=== PATIENT | male | born 1955 | race Caucasian/White ===

== ENCOUNTER 2020-06-18 12:00 | Outpatient (REF) | payer MEDICARE, SELFPAY ==
[2020-06-18 14:32] LABS: Alanine Aminotransferase 22 U/L (0-40); Albumin Level 4.3 g/dL (3.5-5.0); Alkaline Phosphatase 80 U/L (39-117); Anion Gap 13 (12-20); Aspartate Amino Transferase 15 U/L (5-37); Bilirubin Total 0.4 mg/dL (0.0-1.0); Blood Urea Nitrogen 21 mg/dL (9-16); Carbon Dioxide 24 mmol/L (22-29); Chloride 108 mmol/L (96-108); Cholesterol 186 mg/dL; Estimated Glomerular Filt Rate > 60; Glucose Fasting 85 mg/dL (60-99); HDL Cholesterol 41 mg/dL; LDL Cholesterol Calculated 120 mg/dl; Potassium 4.4 mmol/l (3.3-5.1); Sodium 141 mmol/L (135-145); Total Protein 6.8 g/dL (6.5-8.0); Triglycerides 127 mg/dL
== END 2020-06-18 12:01 | disposition home or self-care (01) ==
LOC: HO.HMGCLDS 12:00
PROVIDERS: PCP Nurse Practitioner Family; Visit Provider Nurse Practitioner Family
DX: I10 Essential (primary) hypertension (principal); E78.5 Hyperlipidemia, unspecified
CPT/HCPCS: 80053; 80061

== ENCOUNTER 2020-07-21 09:56 | Outpatient (REF) | payer MEDICARE, SELFPAY ==
[2020-07-21 12:42] LABS: PSA,Total (Free>4and<10) 5.06 ng/mL (0.00-4.00)
[2020-07-22 12:17] LABS: Free Prostate Spec Ag 2.1 ng/mL; Percent Free Prostate Spec Ag 39 % (calc) (>25); Prostate Specific Ag Total 5.4 ng/mL (< OR = 4.0)
== END 2020-07-21 09:57 | disposition home or self-care (01) ==
LOC: HO.HMGCLDS 09:56
PROVIDERS: PCP Nurse Practitioner Family; Visit Provider Urology
DX: N42.9 Disorder of prostate, unspecified (principal)
CPT/HCPCS: 84153

== ENCOUNTER 2020-12-09 10:44 | Outpatient (REF) | payer MEDICARE, SELFPAY ==
[2020-12-09 14:17] LABS: Alanine Aminotransferase 27 U/L (0-40); Albumin Level 4.3 g/dL (3.5-5.0); Alkaline Phosphatase 83 U/L (39-117); Anion Gap 14 (12-20); Aspartate Amino Transferase 20 U/L (5-37); Bilirubin Total 0.6 mg/dL (0.0-1.0); Blood Urea Nitrogen 17 mg/dL (9-16); Carbon Dioxide 24 mmol/L (22-29); Chloride 105 mmol/L (96-108); Cholesterol 173 mg/dL; Estimated Glomerular Filt Rate > 60; Glucose Fasting 88 mg/dL (60-99); HDL Cholesterol 39 mg/dL; LDL Cholesterol Calculated 94 mg/dl; Potassium 4.4 mmol/L (3.3-5.1); Sodium 139 mmol/L (135-145); Total Protein 6.9 g/dL (6.5-8.0); Triglycerides 202 mg/dL
[2020-12-09 14:41] LABS: Prostate Specific Antigen Scr 4.93 ng/mL (<0.05-4.0); TSH reflex Free T4 1.93 uIU/mL (0.32-4.0)
== END 2020-12-09 10:45 | disposition home or self-care (01) ==
LOC: HO.HMGCLDS 10:44
PROVIDERS: PCP Nurse Practitioner Family; Visit Provider Nurse Practitioner Family
DX: Z00.00 Encounter for general adult medical examination without abnormal findings (principal); Z12.5 Encounter for screening for malignant neoplasm of prostate
CPT/HCPCS: 36415; 80053; 80061; 84153; 84443

== ENCOUNTER 2021-08-14 11:45 | Outpatient (REF) | payer MEDICARE, SELFPAY ==
[2021-08-14 14:28] LABS: Alanine Aminotransferase 20 U/L (0-40); Albumin Level 4.3 g/dL (3.5-5.0); Alkaline Phosphatase 83 U/L (39-117); Anion Gap 14 (12-20); Aspartate Amino Transferase 19 U/L (5-37); Bilirubin Total 0.6 mg/dL (0.0-1.0); Blood Urea Nitrogen 17 mg/dL (9-16); Calcium 9.5 mg/dL (8.4-10.2); Carbon Dioxide 22 mmol/L (22-29); Chloride 110 mmol/L (96-108); Cholesterol 195 mg/dL; Estimated Glomerular Filt Rate > 60; Glucose Fasting 89 mg/dL (60-99); HDL Cholesterol 42 mg/dL; LDL Cholesterol Calculated 126 mg/dl; Potassium 4.1 mmol/L (3.3-5.1); Sodium 142 mmol/L (135-145); Total Protein 6.9 g/dL (6.5-8.0); Triglycerides 135 mg/dL
[2021-08-14 14:29] LABS: Appearance Urine CLEAR; Color Urine YELLOW; Glucose Urine UA NEG (NEG); Leukocyte Esterase Urine NEG (NEG); Nitrite Urine NEG (NEG); PH 5.5 (5.0-8.0); Specific Gravity - Urine 1.025 (1.005-1.025); UACC Culture Trigger NO; Urine Blood 3+ (NEG); Urine Ketones NEG (NEG); Urine Protein TRACE MG/DL (NEG-TRACE)
[2021-08-14 14:44] LABS: RBC Urine TNTC /HPF (0); Squamous Epithelial Cell Urine TRACE /LPF
[2021-08-14 14:45] LABS: Amorphous Sediment Urine 2+ /LPF; Mucus Urine 1+ /LPF; WBC Urine 0-2 /HPF (0-4)
[2021-08-14 14:50] LABS: TSH reflex Free T4 1.79 uIU/mL (0.32-4.0)
== END 2021-08-14 11:46 | disposition home or self-care (01) ==
LOC: HO.HMGCLDS 11:45
PROVIDERS: PCP Nurse Practitioner Family; Visit Provider Nurse Practitioner Family
DX: I10 Essential (primary) hypertension (principal)
CPT/HCPCS: 36415; 80053; 80061; 81001; 84443

== ENCOUNTER 2021-09-09 08:48 | Outpatient (REF) | payer MEDICARE, SELFPAY ==
--- NOTE | ~2021-09-09 | CT_ITS ---
EXAMINATION: CT ABDOMEN AND PELVIS WITHOUT CONTRAST CLINICAL INFORMATION: Hematuria. COMPARISON: None TECHNIQUE: Multidetector volumetric imaging was performed from the superior aspect of the liver through the pubic symphysis. Sagittal and coronal reformatted images were obtained on the technologist's workstation. Lack of intravenous and oral contrast limits visceral evaluation. This CT examination was performed using dose optimization techniques as appropriate, variously including the following: *Automated exposure control *Adjustment of mA and/or kV according to patient size (this includes techniques or standardized protocols for targeted exams where dose is matched to indication/reason for exam; i.e. extremities or head) *Use of iterative reconstruction technique DLP: 538 mGy-cm FINDINGS: LUNG BASES: The visualized lung bases are unremarkable. LIVER, GALLBLADDER, AND BILIARY TREE: Unremarkable. PANCREAS: Unremarkable. SPLEEN: Unremarkable. ADRENAL GLANDS: Unremarkable. KIDNEYS AND URETERS: Noncalcified, fluid attenuation cysts are seen bilaterally, left greater than right. One of the largest is seen in the posterior lower pole measuring 3.5 cm (image 36, series 3). Mild left pelvocaliectasis is seen. No left ureterectasis. Several left intrarenal calculi are seen. A sales and marketing representative calculus measures 0.9 cm (HU 410) (image 36, series 3). BLADDER: Incompletely distended with diffuse mild mural thickening. GASTROINTESTINAL TRACT: The stomach, small bowel and appendix are unremarkable. Mild to moderate colonic diverticulosis is seen most pronounced in the sigmoid colon without surrounding abnormality. ABDOMINAL WALL: Very small fat-containing umbilical hernia. LYMPH NODES: Normal. VASCULAR: Unremarkable. PELVIC VISCERA: Prostatomegaly with a volume of approximately 112 mL. OSSEOUS STRUCTURES: Mild to moderate multilevel degenerative changes in the thoracolumbar spine, most pronounced at L5-S1 with mild scoliosis. CT/CT abdomen pelvis wo con IMPRESSION: 1. Mild left renal pelvocaliectasis without obstructing abnormality. Mild left ureteropelvic stenosis is suspected. Several left intrarenal calculi as detailed above. Bilateral renal cysts demonstrate benign features. 2. Marked prostatomegaly. 2. Mild to moderate colonic diverticulosis without evidence for acute diverticulitis.
== END 2021-09-09 08:49 | disposition home or self-care (01) ==
LOC: HO.CT 08:48
PROVIDERS: Visit Provider Nurse Practitioner Family
DX: R31.9 Hematuria, unspecified (principal)
CPT/HCPCS: 74176

== ENCOUNTER 2021-10-14 06:54 | Day surgery (SDC) | payer MEDICARE, SELFPAY ==
[2021-10-08 11:06] VITALS: BMI 31.4
--- NOTE | 2021-10-13 10:19 | P.CONAN_ITS ---
Documented by User: Namita Sebastian NP 10/13/21 10:20 HPI - Anesthesia Eval Consult details Narrative: 66yo M for Colonoscopy PMFSH Active Problems Active Problems: All Active Problems (Updated 08/26/21 @ 14:24 by Alexis Agustin, [facility]) Hematuria (Acute) Cataracts, bilateral (Acute) Elevated PSA (Acute) Screening for colon cancer (Acute) Screening PSA (prostate specific antigen) (Acute) Physical exam (Acute) HTN (hypertension) (Acute) Past Medical History Medical History Elevated PSA HTN (hypertension) Family History Family History Father HTN (hypertension) Stroke Mother COPD (chronic obstructive pulmonary disease) Stroke Brother No problems noted. Brother No problems noted. Brother No problems noted. Surgical History Surgical History History of hemorrhoidectomy History of inguinal hernia History of prostate biopsy History of tonsillectomy Social History Social History Alcohol intake: former Year quit: 1984 Patient Tobacco Use Status: Never used Tobacco Are you DNR?: No Advance Directives: No Advance Directives Information Provided: Yes Nutrition Risks: No Nutritional Risk Meds Allergies Allergy/AdvReac Type Severity Reaction Status Date / Time lisinopril Allergy Unknown cough Verified 06/09/21 09:36 oxycodone Allergy Unknown severe Verified 06/09/21 09:36 nausea and vomiting, vomiting hydromorphone [From AdvReac Nausea Verified 10/08/21 11:06 Dilaudid] Home Medications Medication Instructions Recorded Confirmed Last Taken Type latanoprost 0.005 1 drp OPHTHALMIC 12/09/20 06/09/21 Unknown History % eye drops (EYE) BEDTIME trazodone 50 mg 50 mg PO BEDTIME 06/09/21 06/09/21 Unknown History tablet PRN Exam Exam Date and Time: October 13, 2021 1019 Height,Weight and Vital Signs: Height 5 ft 10 in Weight 99.337 kg Pertinent Lab Results Pertinent Lab Results: Laboratory Tests 08/14/21 11:52 Sodium 142 Potassium 4.1 Chloride 110 H Carbon Dioxide 22 BUN 17 H Creatinine 1.11 Assessment and Plan Assessment Anesthesia Assessment: Chart Reviewed Documented by User: Roxanne Bronson MD 10/14/21 07:26 [facility] Past Medical History Medical History Elevated PSA HTN (hypertension) Family History Family History Father HTN (hypertension) Stroke Mother COPD (chronic obstructive pulmonary disease) Stroke Brother No problems noted. Brother No problems noted. Brother No problems noted. Family history of problems with anesthesia: No Surgical History Surgical History History of hemorrhoidectomy History of inguinal hernia History of prostate biopsy History of tonsillectomy History of Problems with Anesthesia: No Social History Social History Alcohol intake: former Year quit: 1984 Patient Tobacco Use Status: Never used Tobacco Are you DNR?: No Advance Directives: No Advance Directives Information Provided: Yes Nutrition Risks: No Nutritional Risk Meds Allergies Allergy/AdvReac Type Severity Reaction Status Date / Time lisinopril Allergy Unknown cough Verified 06/09/21 09:36 oxycodone Allergy Unknown severe Verified 06/09/21 09:36 nausea and vomiting, vomiting hydromorphone [From AdvReac Nausea Verified 10/08/21 11:06 Dilaudid] Home Medications Medication Instructions Recorded Confirmed Last Taken Type latanoprost 0.005 1 drp OPHTHALMIC 12/09/20 06/09/21 Unknown History % eye drops (EYE) BEDTIME trazodone 50 mg 50 mg PO BEDTIME 06/09/21 06/09/21 Unknown History tablet PRN Exam Airway Mallampati Class: III TM Dist: >3cm Neck ROM: Full Heart: RRR Lungs: CTA Assessment and Plan Final Anesthetic Review Family History of Problems with Anesthesia: No History of Problems with Anesthesia: No NPO: Yes ASA Class: II Final Preanesthetic Review: No Changes in Pt Med Stat, Meds/Allgs Chart Reviewed, Consent Obtained/Reviewed and Anes Risks/Benef Reviewed Patient Risk: Low Procedure Risk: Low Anesthetic Plan Anesthetic Plan: MAC: Disposition: Standard PACU
[2021-10-14 07:02] VITALS: BP 125/76; PULSE 62; RESP 18; TEMP 36.1; O2SAT 97
[2021-10-14] MEDS: Lactated Ringers 1,000 ML 100 ML IVCONT (07:24)
[2021-10-14 09:21] VITALS: BP 106/66; PULSE 57; RESP 16; TEMP 36.4; O2SAT 94
--- NOTE | 2021-10-14 09:27 | P.BOP_ITS ---
Brief Operative Note Date of Service: 10/14/21 Pre-op diagnosis: Screening Post-op diagnosis: other (Colon polyp) Procedure: Colonoscopy to cecum and TI with bx/removal of polyp Surgeon: Reg Morris Anesthesia: MAC Was an Visitor Services Representative used for this Procedure?: No Estimated blood loss (mL): 2.0 Pathology: other (A. Polyp at 20cm) Condition: stable Disposition: PACU
[2021-10-14 09:36] VITALS: BP 113/75; PULSE 63; RESP 16; TEMP 36.2; O2SAT 97
--- NOTE | 2021-10-14 10:08 | OP_ITS ---
SURGEON: Reg Morris MD INDICATIONS: The patient presents for evaluation of colorectal cancer screening and family history of colon cancer. Full consent was obtained from him for this, including risks of bleeding and perforation. PREOPERATIVE DIAGNOSIS: POSTOPERATIVE DIAGNOSIS: PROCEDURE PERFORMED: Colonoscopy of cecum and terminal ileum with biopsy and removal of polyp. ESTIMATED BLOOD LOSS: COMPLICATIONS: ANESTHESIA: Monitored anesthesia care. ASSISTANTS: SPECIMENS: PREOPERATIVE DIAGNOSES: Colorectal cancer screening and family history of colon cancer. POSTOPERATIVE DIAGNOSES: Colorectal cancer screening and family history of colon cancer, small colon polyp, diverticulosis, and internal hemorrhoids. DESCRIPTION OF PROCEDURE: The patient was placed in the left lateral decubitus position. The digital rectal exam revealed no abnormalities. The Olympus video pediatric colonoscope was entered into the rectum and advanced easily to the cecum. Once in the cecum, I did identify normal-appearing cecal pouch with appendiceal orifice and a normal-appearing ileocecal valve. The terminal ileum was cannulated and appeared normal. The scope was withdrawn back in the colon. The entire cecum and ileocecal valve appeared normal. The scope was slowly withdrawn, assessing all mucosal surfaces carefully. Preparation was excellent. At 20 cm, there was a flat approximately 3 mm polyp, which was biopsied and completely removed with cold biopsy forceps. I did not visualize any other polyps, colitis, or angiodysplasia. There was a moderate amount of sigmoid and descending colon diverticulosis. There were also some diverticulae noted in the area of the cecum. In the rectum, scope was retroflexed, visualizing internal hemorrhoids, but no other pathology. The rectal mucosa appeared normal. Scope was straightened and withdrawn from the patient. He tolerated the procedure well and was returned to the recovery area in stable condition. IMPRESSION: 1. Small colon polyp, status post biopsy removal. 2. Diverticulosis. 3. Internal hemorrhoids. PLAN: The results of biopsy will be checked. Even if it is not a tubular adenoma, I would recommend a followup colonoscopy in 5 years given his family history of rectal cancer in his father in his 50s. He will otherwise see me on a p.r.n. basis. MD JOEL Melendez/JACOBY / [phone] MTDXin
== END 2021-10-14 10:05 | disposition home or self-care (01) ==
PROVIDERS: PCP Nurse Practitioner Family; Visit Provider Internal Medicine
PROC: 0DJD8ZZ Inspection of Lower Intestinal Tract, Via Natural or Artificial Opening Endoscopic (ICD-10-PCS; CPT 45378; principal; 2021-10-14 08:20)
DX: Z12.11 Encounter for screening for malignant neoplasm of colon (principal); Z80.0 Family history of malignant neoplasm of digestive organs; D12.5 Benign neoplasm of sigmoid colon; K57.30 Diverticulosis of large intestine without perforation or abscess without bleeding; K64.8 Other hemorrhoids; I10 Essential (primary) hypertension; Z79.899 Other long term (current) drug therapy; Z88.8 Allergy status to other drugs, medicaments and biological substances
CPT/HCPCS: 45380; 88305

== ENCOUNTER 2021-12-16 10:21 | Outpatient (REF) | payer MEDICARE, SELFPAY ==
[2021-12-16 11:28] LABS: MANUAL DIFF FLAG NO
[2021-12-16 11:39] LABS: Appearance Urine CLEAR; Color Urine YELLOW; Glucose Urine UA NEG (NEG); Leukocyte Esterase Urine NEG (NEG); Nitrite Urine NEG (NEG); PH 5.5 (5.0-8.0); Specific Gravity - Urine 1.025 (1.005-1.025); UACC Culture Trigger NO; Urine Blood 3+ (NEG); Urine Ketones NEG (NEG); Urine Protein NEG (NEG-TRACE)
[2021-12-16 11:43] LABS: Basophils Percent Auto 0.6 % (0-2); Eosinophils Absolute Auto 0.1 X10*3/uL (0.0-0.4); Eosinophils Percent Auto 1.9 % (0-4); Hematocrit 41.7 % (42.0-52.0); Hemoglobin 14.3 g/dl (14.0-18.0); Imm Gran Abs Auto 0.01 X10*3/uL (0.00-0.03); Imm Gran Pct Auto 0.2 % (0.0-0.4); Lymphocytes Absolute Auto 1.3 X10*3/uL (1.2-4.9); Lymphocytes Percent Auto 23.4 % (20-40); Mean Corpuscular HGB Conc 34.3 g/dl (31.0-36.0); Mean Corpuscular Hemoglobin 31.8 pg (27.0-33.0); Mean Corpuscular Volume 92.7 fL (80.0-98.0); Monocytes Absolute Auto 0.6 X10*3/uL (0.1-1.2); Monocytes Percent Auto 10.7 % (2-11); Neutrophils Absolute Auto 3.4 x10*3/uL (2.0-8.3); Neutrophils Percent Auto 63.2 % (45-73); Platelet Count 204 X10*3/uL (160-400); Red Cell Distribution Width 12.7 % (11.0-16.0); White Blood Count 5.3 X10*3/uL (4.8-10.8)
[2021-12-16 12:18] LABS: Anion Gap 13 (12-20); Blood Urea Nitrogen 24 mg/dL (9-16); Carbon Dioxide 22 mmol/L (22-29); Chloride 109 mmol/L (96-108); Estimated Glomerular Filt Rate > 60; Glucose Random 92 mg/dL (60-115); Potassium 4.4 mmol/L (3.3-5.1); Sodium 140 mmol/L (135-145)
[2021-12-16 12:19] LABS: Alanine Aminotransferase 18 U/L (0-40); Albumin Level 4.3 g/dL (3.5-5.0); Alkaline Phosphatase 77 U/L (39-117); Anion Gap 12 (12-20); Aspartate Amino Transferase 19 U/L (5-37); Bilirubin Total 0.7 mg/dL (0.0-1.0); Blood Urea Nitrogen 24 mg/dL (9-16); Calcium 9.5 mg/dL (8.4-10.2); Carbon Dioxide 23 mmol/L (22-29); Chloride 108 mmol/L (96-108); Cholesterol 152 mg/dL; Estimated Glomerular Filt Rate > 60; Glucose Fasting 94 mg/dL (60-99); HDL Cholesterol 44 mg/dL; LDL Cholesterol Calculated 86 mg/dl; Potassium 4.4 mmol/L (3.3-5.1); Sodium 139 mmol/L (135-145); Total Protein 6.8 g/dL (6.5-8.0); Triglycerides 111 mg/dL
[2021-12-16 12:19] LABS: Mucus Urine 1+ /LPF; Squamous Epithelial Cell Urine 1+ /LPF; WBC Urine 0 /HPF (0-4)
[2021-12-16 12:27] LABS: TSH reflex Free T4 2.04 uIU/mL (0.32-4.0)
== END 2021-12-16 10:22 | disposition home or self-care (01) ==
LOC: HO.HMGCLDS 10:21
PROVIDERS: Absent Provider Urology; PCP Nurse Practitioner Family; Visit Provider Nurse Practitioner Family
DX: Z00.00 Encounter for general adult medical examination without abnormal findings (principal); N20.0 Calculus of kidney; N39.0 Urinary tract infection, site not specified
CPT/HCPCS: 36415; 80051; 80053; 80061; 81001; 82565; 82947; 84443; 84520; 85025; 87086

== ENCOUNTER → 2022-01-20 12:00 | Outpatient (RCR) | payer MEDICARE, SELFPAY | END | disposition home or self-care (01) | LOC: HO.PTCHIC 06-25 13:45 | PROVIDERS: PCP Nurse Practitioner Family; Visit Provider Physician Assistant | DX: Z47.1 Aftercare following joint replacement surgery (principal); Z96.619 Presence of unspecified artificial shoulder joint | CPT/HCPCS: 97110; 97140; 97161 ==

== ENCOUNTER 2022-07-12 11:09 | Outpatient (REF) | payer OTHER, SELFPAY ==
[2022-07-12 13:56] LABS: MANUAL DIFF FLAG NO
[2022-07-12 14:06] LABS: Basophils Percent Auto 0.7 % (0-2); Eosinophils Absolute Auto 0.1 X10*3/uL (0.0-0.4); Hematocrit 43.4 % (42.0-52.0); Hemoglobin 14.7 g/dl (14.0-18.0); Imm Gran Abs Auto 0.01 X10*3/uL (0.00-0.03); Imm Gran Pct Auto 0.2 % (0.0-0.4); Lymphocytes Absolute Auto 1.3 X10*3/uL (1.2-4.9); Lymphocytes Percent Auto 29.7 % (20-40); Mean Corpuscular HGB Conc 33.9 g/dl (31.0-36.0); Mean Corpuscular Hemoglobin 31.3 pg (27.0-33.0); Mean Corpuscular Volume 92.3 fL (80.0-98.0); Mean Platelet Volume 11.9 fL (9.4-12.4); Monocytes Absolute Auto 0.5 X10*3/uL (0.1-1.2); Monocytes Percent Auto 10.1 % (2-11); Neutrophils Absolute Auto 2.6 x10*3/uL (2.0-8.3); Neutrophils Percent Auto 57.3 % (45-73); Platelet Count 218 X10*3/uL (160-400); Red Cell Distribution Width 13.5 % (11.0-16.0); White Blood Count 4.5 X10*3/uL (4.8-10.8)
[2022-07-12 14:19] LABS: Appearance Urine Clear; Color Urine Yellow; Glucose Urine UA Negative (Negative); Leukocyte Esterase Urine Negative (Negative); Nitrite Urine Negative (Negative); PH 5.5 (5.0-9.0); Specific Gravity - Urine 1.025 (1.005-1.025); UMIC TRIGGER UACC YES; Urine Blood Large (3+) (Negative); Urine Ketones Negative (Negative); Urine Protein Negative (Neg-Trace)
[2022-07-12 14:21] LABS: Alanine Aminotransferase 14 U/L (0-40); Albumin Level 4.5 g/dL (3.5-5.0); Alkaline Phosphatase 73 U/L (39-117); Anion Gap 15 (12-20); Aspartate Amino Transferase 17 U/L (5-37); Bilirubin Total 0.4 mg/dL (0.0-1.0); Blood Urea Nitrogen 21 mg/dL (9-16); Calcium 9.6 mg/dL (8.4-10.2); Carbon Dioxide 22 mmol/L (22-29); Chloride 109 mmol/L (96-108); Cholesterol 188 mg/dL; Estimated Glomerular Filt Rate > 60; Glucose Fasting 96 mg/dL (60-99); HDL Cholesterol 53 mg/dL; LDL Cholesterol Calculated 110 mg/dl; Potassium 4.5 mmol/L (3.3-5.1); Sodium 141 mmol/L (135-145); Total Protein 7.1 g/dL (6.5-8.0); Triglycerides 126 mg/dL
[2022-07-12 14:43] LABS: TSH reflex Free T4 2.62 uIU/mL (0.32-4.0)
[2022-07-12 14:46] LABS: Bacteria Urine None Seen (None Seen); Hyaline Casts Urine 0-2 /LPF (0-2); Squamous Epithelial Cell Urine 0-2 /HPF (0-2); WBC Urine 0-5 /HPF (0-5)
== END 2022-07-12 11:10 | disposition home or self-care (01) ==
LOC: HO.HMGCLDS 11:09
PROVIDERS: PCP Nurse Practitioner Family; Visit Provider Nurse Practitioner Family
DX: I10 Essential (primary) hypertension (principal)
CPT/HCPCS: 36415; 80053; 80061; 81001; 84443; 85025

== ENCOUNTER 2022-10-04 08:43 | Outpatient (REF) | payer OTHER, SELFPAY | END 2022-10-04 08:44 | disposition home or self-care (01) | LOC: HO.XRAY 08:43 | PROVIDERS: PCP Nurse Practitioner Family; Visit Provider Physician Assistant Surgical | DX: Z13.89 Encounter for screening for other disorder (principal) ==

== ENCOUNTER 2022-10-06 08:42 | Outpatient (REF) | payer OTHER, SELFPAY ==
--- NOTE | ~2022-10-06 | XR_ITS ---
EXAMINATION: XR ABDOMEN KUB CLINICAL INDICATION: Calculus of kidney. COMPARISON: CT abdomen/pelvis 09/09/2021. TECHNIQUE: AP view of the abdomen. FINDINGS: There is scattered stool and gas seen throughout the colon without distention. There is no organomegaly. No radiopaque calculi. There is mild spondylosis lumbar spine. No aggressive lytic or sclerotic process. XR/XR KUB IMPRESSION: Mild constipation. No radiopaque calculi seen. Calculi were seen in left kidney on CT abdomen exam 09/09/2021.
== END 2022-10-06 08:43 | disposition home or self-care (01) ==
LOC: HO.XRAY 08:42
PROVIDERS: Visit Provider Physician Assistant Surgical
DX: N20.0 Calculus of kidney (principal)
CPT/HCPCS: 74018

== ENCOUNTER 2022-10-06 08:50 | Outpatient (REF) | payer OTHER, SELFPAY | END 2022-10-06 08:51 | disposition home or self-care (01) | LOC: HO.LNP 08:50 | PROVIDERS: Visit Provider Physician Assistant Surgical | DX: N20.0 Calculus of kidney (principal) | CPT/HCPCS: 82340; 82507; 83945; 84105; 84300; 84560 ==

== ENCOUNTER 2022-12-21 08:06 | Outpatient (REF) | payer OTHER, SELFPAY ==
[2022-12-21 11:36] LABS: MANUAL DIFF FLAG NO
[2022-12-21 11:47] LABS: Basophils Absolute Auto 0.1 X10*3/uL (0.0-0.2); Basophils Percent Auto 0.9 % (0-2); Eosinophils Absolute Auto 0.2 X10*3/uL (0.0-0.4); Hematocrit 42.3 % (42.0-52.0); Hemoglobin 14.3 g/dl (14.0-18.0); Imm Gran Abs Auto 0.01 X10*3/uL (0.00-0.03); Imm Gran Pct Auto 0.2 % (0.0-0.4); Lymphocytes Absolute Auto 1.8 X10*3/uL (1.2-4.9); Lymphocytes Percent Auto 32.1 % (20-40); Mean Corpuscular HGB Conc 33.8 g/dl (31.0-36.0); Mean Corpuscular Hemoglobin 31.7 pg (27.0-33.0); Mean Corpuscular Volume 93.8 fL (80.0-98.0); Mean Platelet Volume 11.8 fL (9.4-12.4); Monocytes Absolute Auto 0.7 X10*3/uL (0.1-1.2); Monocytes Percent Auto 12.7 % (2-11); Neutrophils Absolute Auto 2.9 x10*3/uL (2.0-8.3); Neutrophils Percent Auto 51.1 % (45-73); Platelet Count 262 X10*3/uL (160-400); Red Blood Count 4.51 X10*6/uL (4.60-5.80); Red Cell Distribution Width 12.5 % (11.0-16.0); White Blood Count 5.7 X10*3/uL (4.8-10.8)
[2022-12-21 11:56] LABS: Appearance Urine Clear; Color Urine Orange; Glucose Urine UA Negative (Negative); Leukocyte Esterase Urine Small (1+) (Negative); Nitrite Urine Negative (Negative); Specific Gravity - Urine <= 1.005 (1.005-1.025); UMIC TRIGGER UACC YES; Urine Blood Large (3+) (Negative); Urine Ketones Negative (Negative); Urine Protein 30 (1+) mg/dL (Neg-Trace)
[2022-12-21 11:57] LABS: Bacteria Urine None Seen (None Seen); Hyaline Casts Urine 0-2 /LPF (0-2); RBC Urine >20 /HPF (0-2); Squamous Epithelial Cell Urine 0-2 /HPF (0-2); UACC Culture Trigger YES; WBC Urine 0-5 /HPF (0-5)
[2022-12-21 12:22] LABS: Alanine Aminotransferase 73 U/L (0-40); Albumin Level 4.2 g/dL (3.5-5.0); Alkaline Phosphatase 91 U/L (39-117); Anion Gap 13 (12-20); Aspartate Amino Transferase 30 U/L (5-37); Bilirubin Total 0.4 mg/dL (0.0-1.0); Blood Urea Nitrogen 28 mg/dL (9-16); Calcium 9.7 mg/dL (8.4-10.2); Carbon Dioxide 26 mmol/L (22-29); Chloride 106 mmol/L (96-108); Cholesterol 172 mg/dL; Estimated Glomerular Filt Rate 50; Glucose Fasting 111 mg/dL (60-99); HDL Cholesterol 47 mg/dL; LDL Cholesterol Calculated 108 mg/dl; Potassium 5.3 mmol/L (3.3-5.1); Sodium 140 mmol/L (135-145); TSH reflex Free T4 2.56 uIU/mL (0.32-4.0); Total Protein 6.8 g/dL (6.5-8.0); Triglycerides 87 mg/dL
== END 2022-12-21 08:07 | disposition home or self-care (01) ==
LOC: HO.HMGCLDS 08:06
PROVIDERS: PCP Nurse Practitioner Family; Visit Provider Nurse Practitioner Family
DX: Z00.00 Encounter for general adult medical examination without abnormal findings (principal); R82.90 Unspecified abnormal findings in urine; I10 Essential (primary) hypertension
CPT/HCPCS: 36415; 80053; 80061; 81001; 84443; 85025; 87086

== ENCOUNTER 2022-12-23 11:15 | Outpatient (REF) | payer OTHER, SELFPAY ==
[2022-12-23 14:05] LABS: Appearance Urine Clear; Color Urine Yellow; Glucose Urine UA Negative (Negative); Leukocyte Esterase Urine Small (1+) (Negative); Nitrite Urine Negative (Negative); PH 6.5 (5.0-9.0); UMIC TRIGGER UACC YES; Urine Blood Large (3+) (Negative); Urine Ketones Negative (Negative); Urine Protein Trace mg/dL (Neg-Trace)
[2022-12-23 14:20] LABS: Bacteria Urine None Seen (None Seen); Hyaline Casts Urine 0-2 /LPF (0-2); Squamous Epithelial Cell Urine 0-2 /HPF (0-2); UACC Culture Trigger YES; WBC Urine 0-5 /HPF (0-5)
[2022-12-23 14:24] LABS: Alanine Aminotransferase 40 U/L (0-40); Albumin Level 4.3 g/dL (3.5-5.0); Alkaline Phosphatase 82 U/L (39-117); Anion Gap 13 (12-20); Aspartate Amino Transferase 17 U/L (5-37); Bilirubin Total 0.8 mg/dL (0.0-1.0); Blood Urea Nitrogen 26 mg/dL (9-16); Calcium 9.1 mg/dL (8.4-10.2); Carbon Dioxide 24 mmol/L (22-29); Chloride 104 mmol/L (96-108); Estimated Glomerular Filt Rate 43; Glucose Random 103 mg/dL (60-115); Potassium 4.9 mmol/L (3.3-5.1); Sodium 136 mmol/L (135-145); Total Protein 6.8 g/dL (6.5-8.0)
== END 2022-12-23 11:16 | disposition home or self-care (01) ==
LOC: HO.HMGCLDS 11:15
PROVIDERS: PCP Nurse Practitioner Family; Visit Provider Nurse Practitioner Family
DX: E87.5 Hyperkalemia (principal); R79.89 Other specified abnormal findings of blood chemistry; R31.9 Hematuria, unspecified
CPT/HCPCS: 36415; 80053; 81001; 81003; 87086

== ENCOUNTER 2023-01-14 12:08 | Outpatient (REF) | payer OTHER, SELFPAY ==
[2023-01-14 14:27] LABS: Alanine Aminotransferase 18 U/L (0-40); Albumin Level 4.1 g/dL (3.5-5.0); Alkaline Phosphatase 84 U/L (39-117); Anion Gap 16 (12-20); Aspartate Amino Transferase 20 U/L (5-37); Bilirubin Total 0.7 mg/dL (0.0-1.0); Blood Urea Nitrogen 23 mg/dL (9-16); Calcium 9.6 mg/dL (8.4-10.2); Carbon Dioxide 23 mmol/L (22-29); Chloride 106 mmol/L (96-108); Estimated Glomerular Filt Rate 56; Glucose Random 90 mg/dL (60-115); Potassium 5.1 mmol/L (3.3-5.1); Sodium 140 mmol/L (135-145); Total Protein 6.6 g/dL (6.5-8.0)
== END 2023-01-14 12:09 | disposition home or self-care (01) ==
LOC: HO.HMGCLDS 12:08
PROVIDERS: PCP Nurse Practitioner Family; Visit Provider Nurse Practitioner Family
DX: R79.89 Other specified abnormal findings of blood chemistry (principal)
CPT/HCPCS: 36415; 80053

== ENCOUNTER 2023-06-22 08:22 | Outpatient (AMB) | payer OTHER, SELFPAY ==
[2023-06-22 08:34] VITALS: BP 100/68; PULSE 71; O2SAT 94; BMI 29.3
--- NOTE | 2023-06-22 08:34 | MHC.PC.OV ---
Vital Signs 06/22/23 08:34 Height 5 ft 10 in Weight 204 lb 8 oz BMI 29.3 BP 100/68 Blood Pressure Location Rt brachial Position Sitting Pulse 71 Pulse Source Pulse Oximeter Pulse Oximetry (%) 94 Oxygen Delivery Method Room Air Intake Visit Reasons: 6 Month HTN Allergies lisinopril Allergy (Unknown, Verified 06/22/23 08:36) cough oxycodone Allergy (Unknown, Verified 06/22/23 08:36) severe nausea and vomiting, vomiting hydromorphone [From Dilaudid] Adverse Reaction (Verified 06/22/23 08:36) Nausea Medication List - Last Reconciled 06/22/23 by LATONYA Jensen amlodipine 5 mg PO DAILY 90 days cholecalciferol (vitamin D3) 50 mcg PO DAILY finasteride 1 mg PO DAILY PRN ibuprofen 800 mg PO TID PRN latanoprost 0.005% 1 drp ophthalmic (eye) BEDTIME losartan 100 mg PO DAILY 90 days potassium citrate ER 15 mEq PO BID tamsulosin 0.4 mg PO DAILY 90 days trazodone 50 mg PO BEDTIME PRN Tobacco use date assessed: 06/22/23 Fall risk assessment: No Falls in past year Last assessed Fall Risk: 06/22/23 Dental Screening Dental Screen Date: 06/22/23 Did you have a dental visit in the last 12 months?: Yes Did you have a dental problem in the last 6 months where you did not have access to dental care?: No Was dental information given to patient?: Patient has dentist HPI 6 Month HTN HPI Details HTN: Blood pressure is stable, managed with amlodipine 5mg and losartan 100mg. Denies chest pain, shortness of breath, headache, dizziness, and blurred vision. Pt has been working on his diet. [facility] Medical History (Updated 04/21/23 @ 19:22 by LATONYA Jensen) BPH (benign prostatic hyperplasia) Elevated PSA HTN (hypertension) Surgical History (Updated 04/21/23 @ 19:22 by LATONYA Jensen) S/P TURP History of prostate biopsy History of inguinal hernia History of hemorrhoidectomy History of tonsillectomy Family History Father HTN (hypertension) Stroke Mother COPD (chronic obstructive pulmonary disease) Stroke Brother No problems noted. Brother No problems noted. Brother No problems noted. Social History Housing: House Alcohol intake: former Year quit: 1984 Patient Tobacco Use Status: Never used Tobacco e-Cigarette/Vaping Use: Never Used Second Hand Smoke Exposure: No service: No Current occupational status: retired Cognitive needs: No Hearing needs: No Vision needs: No Questionnaire Thrive Questionnaire Date Thrive assessed: 12/21/22 DELFIN-7 AMB Questionnaire DELFIN-7 Date DELFIN - 7 assessed: 12/21/22 Source: Developed by Drs. Reg Fulton, Jackie Villanueva, Arsalan Campbell and colleagues, with an educational argenis from [employer]. Review of Systems Const Reports as per HPI Physical exam (Primary Care) Vital Signs: Last Vital Signs Pulse 71 06/22/23 08:34 BP 100/68 06/22/23 08:34 Pulse Ox 94 06/22/23 08:34 Oxygen Delivery Method Room Air 06/22/23 08:34 BMI result Body Mass Index 29.3 Tobacco/Smoking Status: Tobacco use Status Tobacco use date assessed 06/22/23 06/22/23 08:40 Patient Tobacco Use Status Never used Tobacco 06/22/23 08:40 e-Cigarette/Vaping Use Never Used 06/22/23 08:40 Thrive Assessment: Date of Thrive Assessment Date Thrive assessed 12/21/22 06/22/23 08:40 Const General: cooperative Orientation/consciousness: patient oriented x3 Resp Effort & Inspection: normal respiratory effort Auscultation: clear to auscultation bilaterally Cardio Rate: regular rate Rhythm: regular rhythm Heart sounds: S1 normal heart sound present and S2 normal heart sound present Neuro General: patient oriented x3 Extrem Right lower extremity: no edema Left lower extremity: no edema Psych Appearance: grossly normal Mental Status: mental status grossly normal Speech and movement: Normal speech and movement present Affect: normal affect Attitude: cooperative Thought process: Normal thought process present Thought content: Normal thought content present Insight: Good insight present (Psych) Judgement: Good judgement present (Psych) Assessment and Plan Assessment & Plan (1) HTN (hypertension): Code(s): I10 - Essential (primary) hypertension Plan: Labs ordered Plan The patient agreed to the use of a medical massage therapist for this encounter. Scribed for LATONYA Hinton by Echo Pérez medical massage therapist, on 06/22/2023 at 08:45 EST Orders: Orders Lipid Panel Today I10 - Essential (primary) hypertension Complete Blood Count Auto Diff Today I10 - Essential (primary) hypertension Comprehensive [place]. Panel Fast Today I10 - Essential (primary) hypertension TSH reflex Free T4 Today I10 - Essential (primary) hypertension UA CC w/rflx Micro + Cult Today I10 - Essential (primary) hypertension Medications: Refilled losartan 100 mg PO DAILY 90 days 90 tabs 4RF amlodipine 5 mg PO DAILY 90 days 90 tabs 4RF Coding Level of Care Code Est Pt Level 3 (01638) Diagnoses HTN (hypertension) I10
== END 2023-06-22 11:00 | disposition home or self-care (01) ==
PROVIDERS: Visit Provider Nurse Practitioner Family
DX: I10 Essential (primary) hypertension (principal)
CPT/HCPCS: 99213

== ENCOUNTER 2023-06-22 08:55 | Outpatient (REF) | payer OTHER, SELFPAY | END 2023-06-22 08:56 | disposition home or self-care (01) | LOC: HO.HMGCLDS 08:55 | PROVIDERS: PCP Nurse Practitioner Family; Visit Provider Nurse Practitioner Family | DX: I10 Essential (primary) hypertension (principal) | CPT/HCPCS: 36415; 80053; 80061; 81001; 84443; 85025 ==

== ENCOUNTER 2024-01-03 10:54 | Outpatient (AMB) | payer OTHER, SELFPAY ==
[2024-01-03 10:55] VITALS: BP 110/70; PULSE 78; O2SAT 96; BMI 30.1
--- NOTE | 2024-01-03 10:55 | A.OFFPC_ITS ---
Vital Signs 01/03/24 10:55 Height 5 ft 10 in Weight 210 lb BMI 30.1 BP 110/70 Blood Pressure Location Lt brachial Position Sitting Pulse 78 Pulse Source Pulse Oximeter Pulse Oximetry (%) 96 Oxygen Delivery Method Room Air Intake Visit Reasons: Annaul PE Intake Note: pt is here for annual exam [employer] Required: No Allergies lisinopril Allergy (Unknown, Verified 01/03/24 11:31) cough oxycodone Allergy (Unknown, Verified 01/03/24 11:31) severe nausea and vomiting, vomiting hydromorphone [From Dilaudid] Adverse Reaction (Verified 01/03/24 11:31) Nausea Medication List - Last Reconciled 01/03/24 by LATONYA Jensen amlodipine 5 mg PO DAILY 90 days cholecalciferol (vitamin D3) 50 mcg PO DAILY ibuprofen 800 mg PO TID PRN latanoprost 0.005% 1 drp ophthalmic (eye) BEDTIME losartan 100 mg PO DAILY 90 days potassium citrate ER 15 mEq PO BID tamsulosin 0.4 mg PO DAILY 90 days trazodone 50 mg PO BEDTIME PRN Tobacco use date assessed: 01/03/24 Fall risk assessment: No Falls in past year Last assessed Fall Risk: 01/03/24 Dental Screening Dental Screen Date: 01/03/24 Did you have a dental visit in the last 12 months?: Yes Did you have a dental problem in the last 6 months where you did not have access to dental care?: No Was dental information given to patient?: Patient has dentist HPI Annaul PE HPI Details Pt is here for a PE. Will order labs. Colon screen is up to date. Pt sees urology who orders his PSA. [facility] Medical History BPH (benign prostatic hyperplasia) Elevated PSA HTN (hypertension) Surgical History S/P TURP History of prostate biopsy History of inguinal hernia History of hemorrhoidectomy History of tonsillectomy Family History Father HTN (hypertension) Stroke Mother COPD (chronic obstructive pulmonary disease) Stroke Brother No problems noted. Brother No problems noted. Brother No problems noted. Social History Housing: House Alcohol intake: former Year quit: 1984 Patient Tobacco Use Status: Never used Tobacco e-Cigarette/Vaping Use: Never Used Second Hand Smoke Exposure: No service: No Current occupational status: retired Cognitive needs: No Hearing needs: No Vision needs: No Questionnaire Thrive Questionnaire Date Thrive assessed: 01/03/24 I am a: Patient What is your living situation today?: I have a steady place to live Within the past 12 months, did the food you bought not last and you didn't have the money to get more?: Never true Within the past 12 months, did you worry whether your food would run out before you got money to buy more?: Never true Do you have trouble paying for medicines?: No Do you have trouble getting transportation to medical appointments?: No Do you have trouble paying your heating and electricity bill?: No Do you have trouble taking care of your child, family member or friend?: No Do you have trouble with day-to-day activities such as bathing, preparing meals, shopping, managing finances, etc.?: No Are you currently unemployed and looking for a job?: No Are you interested in more education?: No Please select the resources that you would like help with: None Currently or been in a relationship where the following occur: no concerns reported THRIVE Score: 0 AUDIT C Alcohol Use Questionnaire (AUDIT-C) 1. How often do you have a drink containing alcohol?: Never 3. How often do you have six or more drinks on one occasion?: Never Total Score: 0 Score Reviewed/Action Taken: Yes DELFIN-7 AMB Questionnaire DELFIN-7 Date DELFIN - 7 assessed: 12/21/22 Source: Developed by Drs. Reg Fulton, Jackie Villanueva, Arsalan Campbell and colleagues, with an educational argenis from [employer]. Review of Systems Const Denies chills and Denies fever(s) Eyes Denies blurry vision ENT Denies vertigo, Denies dizziness and Denies sore throat Card Denies chest pain at rest, Denies chest pain with activity, Denies diaphoresis, Denies dyspnea and Denies dyspnea on exertion Resp Denies cough, Denies dyspnea, Denies dyspnea on exertion and Denies wheezing GI Denies abdominal pain, Denies melena, Denies hematochezia, Denies constipation, Denies diarrhea and Denies loose stools Denies hematuria Musc Denies numbness and Denies tingling Skin/Breast Denies lesions Neuro Denies vertigo, Denies dizziness, Denies numbness and Denies tingling Psych Denies anxiety, Denies depression, Denies homicidal ideation, Denies suicidal ideation and Denies other (substance abuse) Aller/Immun Denies wheezing Physical exam (Primary Care) Vital Signs: Last Vital Signs Pulse 78 01/03/24 10:55 BP 110/70 01/03/24 10:55 Pulse Ox 96 01/03/24 10:55 Oxygen Delivery Method Room Air 01/03/24 10:55 BMI result Body Mass Index 30.1 Tobacco/Smoking Status: Tobacco use Status Tobacco use date assessed 01/03/24 01/03/24 11:03 Patient Tobacco Use Status Never used Tobacco 01/03/24 11:03 e-Cigarette/Vaping Use Never Used 01/03/24 11:03 Thrive Assessment: Date of Thrive Assessment Date Thrive assessed 01/03/24 01/03/24 11:03 Currently or been in a relationship where the following occur: no concerns reported Const General: cooperative Nutritional Appearance: well nourished Orientation/consciousness: patient oriented x3 HENMT Head: Yes normal to inspection, Yes normocephalic and Yes atraumatic Ears: TM's normal bilaterally Eyes General: appearance normal, both eyes and all related structures Alignment and Position: alignment normal and position normal Neck Neck: Yes normal visual inspection and Yes no lymphadenopathy Thyroid: Thyroid normal Resp Effort & Inspection: normal respiratory effort Auscultation: clear to auscultation bilaterally Cardio Rate: regular rate Rhythm: regular rhythm Heart sounds: S1 normal heart sound present, S2 normal heart sound present and no murmurs GI Palpation (GI): Soft to palpation and nontender Auscultation: normal bowel sounds Male General Exam: Yes normal external exam Penis: normal penis Scrotum: scrotum normal, testes descended bilaterally and no inguinal hernias Testes: no testicular mass Skin Rashes: no rashes Neuro General: patient oriented x3, moves all extremities, no focal motor deficits and deep tendon reflexes 2+ bilaterally Romberg Test: Negative Psych Appearance: grossly normal Mental Status: mental status grossly normal Speech and movement: Normal speech and movement present Affect: normal affect Attitude: cooperative Thought process: Normal thought process present Thought content: Normal thought content present Insight: Good insight present (Psych) Judgement: Good judgement present (Psych) Assessment and Plan Assessment & Plan (1) Physical exam: Code(s): Z.00 - Encounter for general adult medical examination without abnormal findin gs Plan: Labs ordered Plan The patient agreed to the use of a esthetician and manager medical spa for this encounter. Scribed for LATONYA Hinton by Echo Pérez esthetician and manager medical spa, on 01/03/2024 at 11:25 EST. Orders: Orders Complete Blood Count Auto Diff Today Z00.00 - Encounter for general adult medical examination without abnormal findings Comprehensive [place]. Panel Fast Today Z00.00 - Encounter for general adult medical examination without abnormal findings TSH reflex Free T4 Today Z00.00 - Encounter for general adult medical examination without abnormal findings Lipid Panel Today Z00.00 - Encounter for general adult medical examination without abnormal findings UA CC w/rflx Micro + Cult Today Z00.00 - Encounter for general adult medical examination without abnormal findings Medications: Refilled ibuprofen 800 mg PO TID PRN 90 tabs 0RF for pain Coding Level of Care Code Est Pt Prev Care >65y(71448) Diagnoses Physical exam Z00.00
== END 2024-01-03 11:36 | disposition home or self-care (01) ==
PROVIDERS: PCP Nurse Practitioner Family; Visit Provider Nurse Practitioner Family
DX: Z00.00 Encounter for general adult medical examination without abnormal findings (principal)
CPT/HCPCS: 99397

== ENCOUNTER 2024-01-03 11:37 | Outpatient (REF) | payer OTHER, SELFPAY ==
[2024-01-03 13:10] LABS: MANUAL DIFF FLAG NO
[2024-01-03 13:29] LABS: Appearance Urine Clear; Color Urine Yellow; Glucose Urine UA Negative (Negative); Leukocyte Esterase Urine Negative (Negative); Nitrite Urine Negative (Negative); Urine Blood Negative (Negative); Urine Ketones Negative (Negative); Urine Protein Negative (Neg-Trace)
[2024-01-03 13:31] LABS: Basophils Percent Auto 0.7 % (0-2); Eosinophils Absolute Auto 0.1 X10*3/uL (0.0-0.4); Eosinophils Percent Auto 1.2 % (0-4); Hematocrit 46.3 % (42.0-52.0); Hemoglobin 15.8 g/dl (14.0-18.0); Imm Gran Abs Auto 0.01 X10*3/uL (0.00-0.03); Imm Gran Pct Auto 0.2 % (0.0-0.4); Lymphocytes Absolute Auto 1.5 X10*3/uL (1.2-4.9); Lymphocytes Percent Auto 34.3 % (20-40); Mean Corpuscular HGB Conc 34.1 g/dl (31.0-36.0); Mean Corpuscular Hemoglobin 31.5 pg (27.0-33.0); Mean Corpuscular Volume 92.2 fL (80.0-98.0); Mean Platelet Volume 11.7 fL (9.4-12.4); Monocytes Absolute Auto 0.4 X10*3/uL (0.1-1.2); Neutrophils Absolute Auto 2.3 x10*3/uL (2.0-8.3); Neutrophils Percent Auto 53.6 % (45-73); Platelet Count 225 X10*3/uL (160-400); Red Blood Count 5.02 X10*6/uL (4.60-5.80); Red Cell Distribution Width 12.9 % (11.0-16.0); White Blood Count 4.3 X10*3/uL (4.8-10.8)
[2024-01-03 14:00] LABS: Alanine Aminotransferase 19 U/L (0-40); Albumin Level 4.6 g/dL (3.5-5.0); Alkaline Phosphatase 78 U/L (39-117); Anion Gap 12 (12-20); Aspartate Amino Transferase 20 U/L (5-37); Bilirubin Total 0.7 mg/dL (0.0-1.0); Blood Urea Nitrogen 25 mg/dL (9-16); Calcium 9.9 mg/dL (8.4-10.2); Carbon Dioxide 22 mmol/L (22-29); Chloride 111 mmol/L (96-108); Cholesterol 188 mg/dL (<200); Estimated Glomerular Filt Rate 59; Glucose Fasting 95 mg/dL (60-99); HDL Cholesterol 49 mg/dL (>40); LDL Cholesterol Calculated 115 mg/dL (<100); Potassium 4.2 mmol/L (3.3-5.1); Sodium 141 mmol/L (135-145); Total Protein 7.8 g/dL (6.5-8.0); Triglycerides 123 mg/dL (<150)
[2024-01-03 14:17] LABS: TSH reflex Free T4 2.13 uIU/mL (0.32-4.0)
== END 2024-01-03 11:38 | disposition home or self-care (01) ==
LOC: HO.HMGCLDS 11:37
PROVIDERS: PCP Nurse Practitioner Family; Visit Provider Nurse Practitioner Family
DX: Z00.00 Encounter for general adult medical examination without abnormal findings (principal); Z13.6 Encounter for screening for cardiovascular disorders
CPT/HCPCS: 36415; 80053; 80061; 81003; 84443; 85025

== ENCOUNTER 2024-07-02 11:26 | Outpatient (AMB) | payer OTHER, SELFPAY ==
[2024-07-02 11:28] VITALS: BP 128/76; PULSE 72; O2SAT 96; BMI 30.4
--- NOTE | 2024-07-02 11:28 | A.OFFPC_ITS ---
Vital Signs 07/02/24 11:28 Height 5 ft 10 in Weight 212 lb BMI 30.4 BP 128/76 Blood Pressure Location Rt brachial Position Sitting Pulse 72 Pulse Source Pulse Oximeter Pulse Oximetry (%) 96 Oxygen Delivery Method Room Air Intake Visit Reasons: 6 month follow up Intake Note: pt is here for 6 month follow up Bus Steward Required: No Accompanied by: Self / Same As Patient Allergies lisinopril Allergy (Unknown, Verified 07/02/24 12:31) cough oxycodone Allergy (Unknown, Verified 07/02/24 12:31) severe nausea and vomiting, vomiting hydromorphone [From Dilaudid] Adverse Reaction (Verified 07/02/24 12:31) Nausea Medication List - Last Reconciled 07/02/24 by LATONYA Jensen amlodipine 5 mg PO DAILY 90 days cholecalciferol (vitamin D3) 50 mcg PO DAILY ibuprofen 800 mg PO TID PRN latanoprost 0.005% 1 drp ophthalmic (eye) BEDTIME losartan 100 mg PO DAILY 90 days potassium citrate ER 15 mEq PO BID tamsulosin 0.4 mg PO DAILY 90 days trazodone 50 mg PO BEDTIME PRN Tobacco use date assessed: 07/02/24 Fall risk assessment: No Falls in past year Last assessed Fall Risk: 07/02/24 Dental Screening Dental Screen Date: 01/03/24 HPI 6 month follow up HPI Details HTN: Blood pressure is stable, managed with amlodipine 5mg and losartan 100mg. Denies chest pain, shortness of breath, headache, dizziness, and blurred vision. Pt reports eating much better and exercising regularly [facility] Medical History BPH (benign prostatic hyperplasia) Elevated PSA HTN (hypertension) Surgical History S/P TURP History of prostate biopsy History of inguinal hernia History of hemorrhoidectomy History of tonsillectomy Family History Father HTN (hypertension) Stroke Mother COPD (chronic obstructive pulmonary disease) Stroke Brother No problems noted. Brother No problems noted. Brother No problems noted. Social History Housing: House Alcohol intake: former Year quit: 1984 Patient Tobacco Use Status: Never used Tobacco e-Cigarette/Vaping Use: Never Used Second Hand Smoke Exposure: No service: No Current occupational status: retired Cognitive needs: No Hearing needs: No Vision needs: No Questionnaire PHQ-9 Over the last 2 weeks, how often have you been bothered by any of the following problems? 1. Little interest or pleasure in doing things: not at all 2. Feeling down, depressed, or hopeless: not at all 3. Trouble falling or staying asleep, or sleeping too much: not at all 4. Feeling tired or having little energy: not at all 5. Poor appetite or overeating: not at all 6. Feeling bad about yourself - or that you are a failure or have let yourself or your family down: not at all 7. Trouble concentrating on things, such as reading the newspaper or watching television: not at all 8. Moving or speaking so slowly that other people could have noticed. Or the opposite - being so fidgety or restless that you have been moving around a lot more than usual: not at all 9. Thoughts that you would be better off or of hurting yourself in some way: not at all Total score: 0 Depression Screening Interpretation: Negative Depression Screening Done: Yes 55469 - PHQ-9 Billing: Yes Source: Developed by Drs. Reg Fulton, Jackie Villanueva, Arsalan Campbell and colleagues, with an educational argenis from [employer]. Thrive Questionnaire Date Thrive assessed: 07/02/24 I am a: Patient What is your living situation today?: I have a steady place to live Within the past 12 months, did the food you bought not last and you didn't have the money to get more?: Never true Within the past 12 months, did you worry whether your food would run out before you got money to buy more?: Never true Do you have trouble paying for medicines?: No Do you have trouble getting transportation to medical appointments?: No Do you have trouble paying your heating and electricity bill?: No Do you have trouble taking care of your child, family member or friend?: No Do you have trouble with day-to-day activities such as bathing, preparing meals, shopping, managing finances, etc.?: No Are you currently unemployed and looking for a job?: No Are you interested in more education?: No Please select the resources that you would like help with: None Currently or been in a relationship where the following occur: No concerns reported THRIVE Score: 0 AUDIT C Alcohol Use Questionnaire (AUDIT-C) 1. How often do you have a drink containing alcohol?: Never 3. How often do you have six or more drinks on one occasion?: Never Total Score: 0 Score Reviewed/Action Taken: Yes DELFIN-7 AMB Questionnaire DELIFN-7 Date DELFIN - 7 assessed: 07/02/24 Feeling nervous, anxious, or on edge: 0 = Not at all Not being able to stop or control worryin = Not at all Worrying too much about different things: 0 = Not at all Trouble relaxin = Several days Being so restless that it is hard to sit still: 0 = Not at all Becoming easily annoyed or irritable: 0 = Not at all Feeling afraid as if something awful might happen: 0 = Not at all Total DELFIN-7 score (0-4 normal; 5-9 mild; 10-14 moderate; 15-21 severe): 1 Source: Developed by Drs. Reg Fulton, Jackie Villanueva, Arsalan Campbell and colleagues, with an educational argenis from [employer]. DELFIN-7 Assessment Billing DELFIN-7 Assessment Tool: DELFIN-7 Assessment 96108 Review of Systems Const Reports as per HPI Physical exam (Primary Care) Vital Signs: Last Vital Signs Pulse 72 07/02/24 11:28 BP 128/76 07/02/24 11:28 Pulse Ox 96 07/02/24 11:28 Oxygen Delivery Method Room Air 07/02/24 11:28 BMI result Body Mass Index 30.4 Tobacco/Smoking Status: Tobacco use Status Tobacco use date assessed 07/02/24 07/02/24 11:33 Patient Tobacco Use Status Never used Tobacco 07/02/24 11:33 e-Cigarette/Vaping Use Never Used 07/02/24 11:33 PHQ-9: PHQ-9 Score PHQ-9: Total score 0 07/02/24 11:33 Depression Screening Interpretation: Negative Thrive Assessment: Date of Thrive Assessment Date Thrive assessed 07/02/24 07/02/24 11:33 Currently or been in a relationship where the following occur: No concerns reported Const General: cooperative Orientation/consciousness: patient oriented x3 Resp Effort & Inspection: normal respiratory effort Auscultation: clear to auscultation bilaterally Cardio Other: difficult to auscultate Rate: regular rate Rhythm: regular rhythm Heart sounds: S1 normal heart sound present and S2 normal heart sound present Neuro General: patient oriented x3 Extrem Right lower extremity: no edema Left lower extremity: no edema Psych Appearance: grossly normal Mental Status: mental status grossly normal Speech and movement: Normal speech and movement present Affect: normal affect Attitude: cooperative Thought process: Normal thought process present Thought content: Normal thought content present Insight: Good insight present (Psych) Judgement: Good judgement present (Psych) Coding Level of Care Code Est Pt Level 3 (08235) Diagnoses HTN (hypertension) I10 Vitamin D deficiency E55.9 Additional Codes DELFIN-7 Assessment Billing - DELFIN-7 Assessment Tool: DELFIN-7 Assessment 67223 ([id number]) Assessment & Plan Assessment & Plan (1) HTN (hypertension): Code(s): I10 - Essential (primary) hypertension Category: Medical Plan: Stable, labs ordered (2) Vitamin D deficiency: Code(s): E55.9 - Vitamin D deficiency, unspecified Category: Medical Plan: labs ordered Plan The patient agreed to the use of a durable medical equipment technician for this encounter. Scribed for LATONYA Hinton by Echo Pérez durable medical equipment technician, on 07/02/2024 at 11:45 EST. Orders: Orders Complete Blood Count Auto Diff Today I10 - Essential (primary) hypertension TSH reflex Free T4 Today I10 - Essential (primary) hypertension UA CC w/rflx Micro + Cult Today I10 - Essential (primary) hypertension AMB EKG-In Office Today I10 - Essential (primary) hypertension Vitamin D 25-OH Total Today E55.9 - Vitamin D deficiency, unspecified, I10 - Essential (primary) hypertension Comprehensive [place]. Panel Fast Today I10 - Essential (primary) hypertension Lipid Panel Today I10 - Essential (primary) hypertension
== END 2024-07-02 12:12 | disposition home or self-care (01) ==
PROVIDERS: PCP Nurse Practitioner Family; Visit Provider Nurse Practitioner Family
DX: I10 Essential (primary) hypertension (principal); E55.9 Vitamin D deficiency, unspecified

== ENCOUNTER → 2024-07-02 11:26 | Outpatient (BNVA) | payer OTHER, SELFPAY | PROVIDERS: PCP Nurse Practitioner Family; Visit Provider Nurse Practitioner Family | DX: I10 Essential (primary) hypertension (principal); E55.9 Vitamin D deficiency, unspecified; Z79.899 Other long term (current) drug therapy | CPT/HCPCS: 96127 ==

== ENCOUNTER 2024-07-02 12:14 | Outpatient (REF) | payer OTHER, SELFPAY ==
[2024-07-02 13:17] LABS: MANUAL DIFF FLAG NO
[2024-07-02 13:25] LABS: Appearance Urine Clear; Color Urine Yellow; Glucose Urine UA Negative (Negative); Leukocyte Esterase Urine Negative (Negative); Nitrite Urine Negative (Negative); Specific Gravity - Urine 1.015 (1.005-1.025); Urine Blood Negative (Negative); Urine Ketones Negative (Negative); Urine Protein Negative (Neg-Trace)
[2024-07-02 13:26] LABS: Basophils Percent Auto 0.9 % (0-2); Eosinophils Absolute Auto 0.2 X10*3/uL (0.0-0.4); Eosinophils Percent Auto 3.4 % (0-4); Hematocrit 41.4 % (42.0-52.0); Hemoglobin 14.2 g/dl (14.0-18.0); Imm Gran Abs Auto 0.01 X10*3/uL (0.00-0.03); Imm Gran Pct Auto 0.2 % (0.0-0.4); Lymphocytes Absolute Auto 1.3 X10*3/uL (1.2-4.9); Mean Corpuscular HGB Conc 34.3 g/dl (31.0-36.0); Mean Corpuscular Hemoglobin 32.2 pg (27.0-33.0); Mean Corpuscular Volume 93.9 fL (80.0-98.0); Mean Platelet Volume 11.4 fL (9.4-12.4); Monocytes Absolute Auto 0.5 X10*3/uL (0.1-1.2); Monocytes Percent Auto 11.5 % (2-11); Neutrophils Absolute Auto 2.4 x10*3/uL (2.0-8.3); Platelet Count 199 X10*3/uL (160-400); Red Blood Count 4.41 X10*6/uL (4.60-5.80); White Blood Count 4.4 X10*3/uL (4.8-10.8)
[2024-07-02 15:22] LABS: Anion Gap 11 (12-20); Carbon Dioxide 26 mmol/L (22-29); Chloride 109 mmol/L (96-108); Potassium 5.2 mmol/L (3.3-5.1); Sodium 141 mmol/L (135-145); Total Protein 6.7 g/dL (6.5-8.0)
[2024-07-02 15:23] LABS: Cholesterol 174 mg/dL (<200)
[2024-07-02 15:25] LABS: TSH reflex Free T4 1.09 uIU/mL (0.32-4.0); Vitamin D 25-OH Total 46.5 ng/mL (>30)
[2024-07-02 15:37] LABS: Alanine Aminotransferase 30 U/L (0-40); Albumin Level 4.3 g/dL (3.5-5.0); Alkaline Phosphatase 78 U/L (39-117); Aspartate Amino Transferase 26 U/L (5-37); Bilirubin Total 0.5 mg/dL (0.0-1.0); Blood Urea Nitrogen 26 mg/dL (9-16); Calcium 9.3 mg/dL (8.4-10.2); Estimated Glomerular Filt Rate 54; Glucose Fasting 90 mg/dL (60-99); HDL Cholesterol 46 mg/dL (>40); LDL Cholesterol Calculated 111 mg/dL (<100); Triglycerides 85 mg/dL (<150)
== END 2024-07-02 12:15 | disposition home or self-care (01) ==
LOC: HO.HMGCLDS 12:14
PROVIDERS: PCP Nurse Practitioner Family; Visit Provider Nurse Practitioner Family
DX: I10 Essential (primary) hypertension (principal); E55.9 Vitamin D deficiency, unspecified
CPT/HCPCS: 36415; 80053; 80061; 81003; 82306; 84443; 85025

== ENCOUNTER 2024-07-13 09:24 | Outpatient (REF) | payer OTHER, SELFPAY ==
[2024-07-13 14:05] LABS: Anion Gap 15 (12-20); Carbon Dioxide 21 mmol/L (22-29); Chloride 109 mmol/L (96-108); Potassium 4.6 mmol/L (3.3-5.1); Sodium 140 mmol/L (135-145)
== END 2024-07-13 09:25 | disposition home or self-care (01) ==
LOC: HO.HMGCLDS 09:24
PROVIDERS: PCP Nurse Practitioner Family; Visit Provider Nurse Practitioner Family
DX: E87.5 Hyperkalemia (principal)
CPT/HCPCS: 36415; 80051

== ENCOUNTER 2024-09-03 14:59 | Outpatient (AMB) | payer OTHER, SELFPAY ==
--- NOTE | 2024-09-03 15:11 | AM.OFFWIN_ITS ---
Intake Vital Signs 3 09/03/24 15:12 Height 5 ft 10 in Weight 211 lb BMI 30.3 BP 124/70 Blood Pressure Location Rt brachial Position Sitting Pulse 83 Pulse Source Pulse Oximeter Pulse Oximetry (%) 98 Oxygen Delivery Method Room Air Intake Visit Reasons: EP-lump rt side of belly Intake Note: Patient here for lump on right side of stomach that has been present for months and is becoming bothersome and grown in size. Patient Tobacco Use Status: Never used Tobacco Allergies lisinopril Allergy (Unknown, Verified 09/03/24 15:13) cough oxycodone Allergy (Unknown, Verified 09/03/24 15:13) severe nausea and vomiting, vomiting hydromorphone [From Dilaudid] Adverse Reaction (Verified 09/03/24 15:13) Nausea Do you need a note to return to daycare/school/sports/work: Yes HPI HPI Comments 2 History of Present Illness0 Details History of Present Illness The patient is a 69-year-old male presenting with a persistent, non-healing wound on the abdomen. Several months ago, the patient noticed a small lesion on his abdomen, described as a multi-headed pimple, which he treated with Neosporin. Initially, the lesion seemed to improve; however, in the last month, it has become redder and more irritated. The wound occasionally stings when rubbed by his shirt or when Neosporin is applied. Despite covering it with Band- Aids, the lesion has not resolved. The patient expresses concern about the lesion's change in appearance and its persistence. He denies any fever or discharge from the wound. The patient has not consulted a diplomatic interpreter/translator. Additionally, he reports a history of kidney stones for which he was prescribed potassium supplements. Recent blood work revealed elevated potassium levels, which normalized after reducing the potassium dosage from two tablets to one daily. Physical Exam General: Cooperative, healthy appearing, comfortable, no acute distress and well developed Orientation: Patient oriented x3 Limitations: No limitations Head: Normal to inspection Ears: Hearing grossly normal bilaterally Nose: Normal external nose present Face and sinus: Normal facial exam Eyes: Appearance normal, both eyes and all related structures Neck: Normal visual inspection and Yes full ROM Respiratory: Normal respiratory effort and able to speak in complete sentences. Skin: Red, non-healing wound on the abdomen noted, see below Neuro: Patient oriented x3 Extremities: Normal to inspection [facility] Medical History BPH (benign prostatic hyperplasia) Elevated PSA HTN (hypertension) Surgical History S/P TURP History of prostate biopsy History of inguinal hernia History of hemorrhoidectomy History of tonsillectomy Family History Father HTN (hypertension) Stroke Mother COPD (chronic obstructive pulmonary disease) Stroke Brother No problems noted. Brother No problems noted. Brother No problems noted. Social History Housing: House Alcohol intake: former Year quit: 1984 Patient Tobacco Use Status: Never used Tobacco e-Cigarette/Vaping Use: Never Used Second Hand Smoke Exposure: No service: No Current occupational status: retired Cognitive needs: No Hearing needs: No Vision needs: No Review of Systems Const All systems reviewed & are unremarkable except as noted in HPI and below Physical Exam Vital Signs: Last Vital Signs Pulse 83 09/03/24 15:12 BP 124/70 09/03/24 15:12 Pulse Ox 98 09/03/24 15:12 Oxygen Delivery Method Room Air 09/03/24 15:12 BMI result Body Mass Index 30.3 Skin Other: Assessment & Plan Assessment & Plan (1) Skin lesion: Code(s): L98.9 - Disorder of the skin and subcutaneous tissue, unspecified Plan: - Refer the patient to dermatology for further evaluation and potential biopsy of the abdominal lesion. Consideration for a diagnosis of basal cell carcinoma was discussed but advised needs biopsy by Geothermal Plant Manager. - Instruct the patient to monitor and continue with the reduced dosage of potassium supplements, which has normalized his potassium levels. - Advise the patient to seek medical attention if symptoms of hyperkalemia reappear, such as weakness, numbness, tingling, or chest pain. Patient was informed and verbally consented to the use of an ambient scribe for clinic note documentation during this visit. Orders: Referrals 2 Dermatology Referral L98.9 - Disorder of the skin and subcutaneous tissue, unspecified Coding Level of Care Code Est Pt Level 4 (97663) Diagnoses Skin lesion L98.9
[2024-09-03 15:12] VITALS: BP 124/70; PULSE 83; O2SAT 98; BMI 30.3
== END 2024-09-03 15:38 | disposition home or self-care (01) ==
PROVIDERS: PCP Nurse Practitioner Family; Visit Provider Physician Assistant
DX: L98.9 Disorder of the skin and subcutaneous tissue, unspecified (principal)

== ENCOUNTER 2025-01-28 12:48 | Outpatient (AMB) | payer OTHER, SELFPAY ==
--- OUTSIDE RECORDS SUMMARY | 2025-01-28 13:01 | XMS_ITS | Patient Health Record ---
Author Organization [facility] Address [address] [place] [address] Care Team Providers Care Line Erector Apprentice Name Role Phone RAEGAN XAVIER Primary Care Provider Reg Casarez Unavailable [phone] Allergies Allergen (clinical drug ingredient) Drug/Non Drug Allergy documented on EMR Reaction Allergy Type Onset Date Status oxycodone Oxycodone nauseous Drug Allergy Active acetaminophen / oxycodone Percocet nauseous Drug Allergy Active hydromorphone Dilaudid nauseous Drug Allergy Act dontrell Reason For Referral No Information Medications Medication SIG (Take, Route, Frequency, Duration) Notes Start Date End Date Status ibuprofen 800 mg 1 tab Oral three mirlande es a day Just prn Active [facility] D3 50 MCG (1999) Oral for 90 Active Losartan Potassium 100 MG Oral for 90 Active Flomax 0.4 MG 1 capsule Orally Onc e a day for 30 day(s) Active traZODone HCl 50 MG 1 tablet at bedtime Orally as needed for sleep Active Immunizations Vaccine Route Administration Date Status Comme nts Influenza Unknown 05/13/2021 Administered Problems Problem Type SNOMED Code ICD Code Onset Dates Problem Status W/U Status Risk Notes Problem 405614663 Encounter for screening for malignant neoplasm of colon (Z12.11) Active confirmed Problem Screening for malignant neoplasm of rectum (372088197) Encounter for screening for malignant neoplasm of rectum (Z12.12) Active confirmed Problem 59823534 Preprocedural examination (Z01.818) Active confirmed Problem 80082129 Hemorrhoids, unspecified hemorrhoid type (K64.9) Active confirmed Problem [id number] Family history o f colorectal cancer (Z80.0) Active confirmed Problem Diverticulosis of colon (560724230) Diverticulosis of colon (K57.30) Active confirmed Plan Of Treatment Pending Test Test Name Order Date Pathology 10/14/2021 Future Test Test Name Order Date COLONOSCOPY 11/27/2015 COLONOSCOPY 09/03/2021 Insurance Providers Payer Name Payer Address Payer Phone Subscriber Number Group Number Insured Name Patient Relationship to Insured Coverage Start Date Coverage End Date [facility] [address] [place] [phone] [id number] MATHIEU VISHAL Self - patient is the insured MEDICARE OF [place] [address] [place] [address] [phone] [id number] RACHEL MURDOCKHEN Self - patient is the insured Medical (General) History Medical History History ICD Code Hypertension Denies [place],DM,CVA,Lung disease,renal dise ase 3 previous colonoscopies manav t have been negative for polyps, with the most recent one in April [address] Montiel showing only internal hemorrhoids--he had [address] Guillermo Negative colonoscopy with ks in 05/2016 Surgical History Surgery Date(Month/Year) Left broken leg [address] Montiel, Dr Christie Guillermo, Dr. Sanchez Shoulder surgery bilateral Left inguinal hernia
[2025-01-28 13:10] VITALS: BP 120/70; PULSE 65; RESP 18; TEMP 36.5; O2SAT 96; BMI 29.8
--- NOTE | 2025-01-28 13:10 | A.OFFPC_ITS ---
Vital Signs 01/28/25 13:10 Height 5 ft 10 in Weight 208 lb BMI 29.8 BP 120/70 Blood Pressure Location Rt brachial Position Sitting Respiration 18 Pulse 65 Pulse Source Pulse Oximeter Temp 97.7 F Temp Source Oral Pulse Oximetry (%) 96 Oxygen Delivery Method Room Air Intake Visit Reasons: PE Intake Note: Pt is here today for PE. Allergies lisinopril Allergy (Unknown, Verified 01/28/25 13:42) cough oxycodone Allergy (Unknown, Verified 01/28/25 13:42) severe nausea and vomiting, vomiting hydromorphone [From Dilaudid] Adverse Reaction (Verified 01/28/25 13:42) Nausea Medication List - Last Reconciled 01/28/25 by Alexis Agustin, AUTOMOTIVE DETAILER- amlodipine 5 mg PO DAILY 90 days buspirone 5 mg PO BID 30 days cholecalciferol (vitamin D3) 50 mcg PO DAILY ibuprofen 800 mg PO TID PRN latanoprost 0.005% 1 drp ophthalmic (eye) BEDTIME losartan 100 mg PO DAILY potassium citrate ER 15 mEq PO BID tamsulosin 0.4 mg PO DAILY 90 days trazodone 50 mg PO BEDTIME PRN Tobacco use date assessed: 01/28/25 Fall risk assessment: No Falls in past year Last assessed Fall Risk: 01/28/25 Dental Screening Dental Screen Date: 01/28/25 Did you have a dental visit in the last 12 months?: Yes Did you have a dental problem in the last 6 months where you did not have access to dental care?: No Was dental information given to patient?: Patient has dentist HPI PE HPI Details History of Present Illness The patient is a 69-year-old male presenting with concerns for follow-up [facility] of malignant melanoma and ongoing health maintenance. He recently underwent an excision of a malignant melanoma from his right lower abdomen. It was notably extensive but showed no lymphatic involvement. Two lymph nodes, one proximal and one distal to the lesion, were removed and evaluated, which displayed no concerning findings. He exhibits a well-approximated scar with adequate healing. Plans for removal of additional melanomas on the right forearm and left welch are underway, and he is scheduled to commence treatment with Pembrolizumab (Keytruda) as part of his chemotherapy regimen. A port is recommended to simplify the administration of medications and blood draws, reducing the frequency of needle use. He concurrently manages urological issues and attends regular follow-up appointments with a urologist, where a PSA level is obtained for prostate health monitoring. He reports no acute distress related to these conditions and is handling his treatment plan well. anxiety: pt reports ongoing anxiety, denies any si or hi. I will start him on a low dose buspirone, will titrate up if need be Health Maintenance - Colon cancer screening: Up to date - Prostate-Specific Antigen (PSA) levels : To be obtained - Chemotherapy with Pembrolizumab (Keytr uda): Scheduled to commence - Port placement discussed for chemother apy administration Social History Review of Systems - Dermatological: Reports malignant evelyn noma, scarring - Musculoskeletal: Denies significant mu sculoskeletal symptoms - Oncology: Reports scheduled chemothera py initiation -denies any CP, SOB, fevers, chills, N/V , blood in stool, constipation or diarrhea, denies any current urinary issues, denies any SI or HI Physical Exam General: Cooperative, healthy appearing, comfortable, no acute distress and well developed Orientation: Patient oriented x3 Limitations: No limitations Head: Normal to inspection Ears: Hearing grossly normal bilaterally Nose: Normal external nose present Face and sinus: Normal facial exam Eyes: Appearance normal, both eyes and all related structures Neck: Normal visual inspection and Yes full ROM Respiratory: Normal respiratory effort and able to speak in complete sentences. Clear to auscultation bilaterally Cardiovascular: Regular rate and rhythm. Normal S1 and S2 GI: Normal to inspection. Soft to palpation and nontender Skin: Healed scar to right lower abdomen, well approximated. Scabbed, almost completely healed scar to right axillary region. Further melanoma to be removed from right forearm, dorsal aspect, and left welch region, left lower extremity. Neuro: Patient oriented x3 Extremities: Normal to inspection Results Plan I plan to commence Pembrolizumab for the patient?s ongoing management of malignant melanoma, in alignment with oncological treatment protocols. Placement of a port is recommended to ease chemotherapy administration and blood draw procedures. The patient will be regularly monitored with PSA levels to manage prostate health. Scheduled removal of additional melanomas on the right forearm and left welch will proceed as planned. Continuous follow-up with specialists in dermatology and oncology will be maintained to ensure comprehensive management of his conditions. Discussion Notes In today's consultation, I emphasized the significance of initiating treatment with Pembrolizumab following the melanoma excision, offering an overview of the potential benefits and side effects. The patient has decided to proceed with having a port installed to reduce the burden of routine needle insertions. We discussed the ongoing need for PSA monitoring to assess prostate health amidst his urological conditions. Plans were set for further melanoma removal. The patient's attitude towards his upcoming treatments is positive, reflecting a clear understanding and consent to the proposed management plan. Patient Instructions - Start chemotherapy with Pembrolizumab as scheduled - Consider port placement to assist with treatment - Attend all scheduled follow-up appoint ments with oncology and urology - Monitor for any side effects from the chemotherapy and report any concerns immediately - Return to the clinic for regular PSA m onitoring for prostate health [facility] Medical History Malignant melanoma BPH (benign prostatic hyperplasia) Elevated PSA HTN (hypertension) Surgical History Hx of melanoma excision S/P TURP History of prostate biopsy History of inguinal hernia History of hemorrhoidectomy History of tonsillectomy Family History Father HTN (hypertension) Stroke Mother COPD (chronic obstructive pulmonary disease) Stroke Brother No problems noted. Brother No problems noted. Brother No problems noted. Social History Housing: House Alcohol intake: former Year quit: 1984 Patient Tobacco Use Status: Never used Tobacco e-Cigarette/Vaping Use: Never Used Second Hand Smoke Exposure: No service: No Current occupational status: retired Cognitive needs: No Hearing needs: No Vision needs: Yes Questionnaire PHQ-9 Over the last 2 weeks, how often have you been bothered by any of the following problems? 1. Little interest or pleasure in doing things: not at all 2. Feeling down, depressed, or hopeless: not at all 3. Trouble falling or staying asleep, or sleeping too much: not at all 4. Feeling tired or having little energy: not at all 5. Poor appetite or overeating: not at all 6. Feeling bad about yourself - or that you are a failure or have let yourself or your family down: not at all 7. Trouble concentrating on things, such as reading the newspaper or watching television: not at all 8. Moving or speaking so slowly that other people could have noticed. Or the opposite - being so fidgety or restless that you have been moving around a lot more than usual: not at all 9. Thoughts that you would be better off or of hurting yourself in some way: not at all Total score: 0 Depression Screening Interpretation: Negative Depression Screening Done: Yes 79104 - PHQ-9 Billing: Yes Source: Developed by Drs. Reg Fulton, Jackie Villanueva, Arsalan Campbell and colleagues, with an educational argenis from [employer]. Thrive Questionnaire Date Thrive assessed: 01/28/25 I am a: Patient What is your living situation today?: I have a steady place to live Within the past 12 months, did the food you bought not last and you didn't have the money to get more?: Never true Within the past 12 months, did you worry whether your food would run out before you got money to buy more?: Never true Do you have trouble paying for medicines?: No Do you have trouble getting transportation to medical appointments?: No Do you have trouble paying your heating and electricity bill?: No Do you have trouble taking care of your child, family member or friend?: No Do you have trouble with day-to-day activities such as bathing, preparing meals, shopping, managing finances, etc.?: No Are you currently unemployed and looking for a job?: No Are you interested in more education?: No Please select the resources that you would like help with: None Currently or been in a relationship where the following occur: No concerns reported THRIVE Score: 0 AUDIT C Alcohol Use Questionnaire (AUDIT-C) 1. How often do you have a drink containing alcohol?: Never 3. How often do you have six or more drinks on one occasion?: Never Total Score: 0 DELFIN-7 AMB Questionnaire DELFIN-7 Date DELFIN - 7 assessed: 01/28/25 Feeling nervous, anxious, or on edge: 2 = More than half the days Not being able to stop or control worryin = More than half the days Worrying too much about different things: 2 = More than half the days Trouble relaxin = Not at all Being so restless that it is hard to sit still: 0 = Not at all Becoming easily annoyed or irritable: 0 = Not at all Feeling afraid as if something awful might happen: 0 = Not at all Total DELFIN-7 score (0-4 normal; 5-9 mild; 10-14 moderate; 15-21 severe): 6 Source: Developed by Drs. Reg Fulton, Jackie Villanueva, Arsalan Campbell and colleagues, with an educational argenis from [employer]. DELFIN-7 Assessment Billing DELFIN-7 Assessment Tool: DELFIN-7 Assessment 44812 Physical exam (Primary Care) Vital Signs: Last Vital Signs Temp 97.7 F 01/28/25 13:10 Pulse 65 01/28/25 13:10 Resp 18 01/28/25 13:10 BP 120/70 01/28/25 13:10 Pulse Ox 96 01/28/25 13:10 Oxygen Delivery Method Room Air 01/28/25 13:10 BMI result Body Mass Index 29.8 Tobacco/Smoking Status: Tobacco use Status Tobacco use date assessed 01/28/25 01/28/25 13:19 Patient Tobacco Use Status Never used Tobacco 01/28/25 13:19 e-Cigarette/Vaping Use Never Used 01/28/25 13:19 PHQ-9: PHQ-9 Score PHQ-9: Total score 0 01/28/25 13:19 Depression Screening Interpretation: Negative Thrive Assessment: Date of Thrive Assessment Date Thrive assessed 01/28/25 01/28/25 13:19 Currently or been in a relationship where the following occur: No concerns reported Coding Level of Care Code Est Pt Prev Care >65y(54234) Diagnoses Physical exam Z00.00 Screening PSA (prostate specific antigen) Z12.5 Additional Codes DELFIN-7 Assessment Billing - DELFIN-7 Assessment Tool: DELFIN-7 Assessment 11491 ([id number]) PHQ-9 - 38136 - PHQ-9 Billing: Yes ([id number]) Assessment & Plan Assessment & Plan (1) Physical exam: Code(s): Z00.00 - Encounter for general adult medical examination without abnormal findings Category: Medical (2) Screening PSA (prostate specific antigen): Code(s): Z12.5 - Encounter for screening for malignant neoplasm of prostate Category: Medical Plan . Orders: Orders Prostate Specific Antigen Scr Today Z12.5 - Encounter for screening for malignant neoplasm of prostate Complete Blood Count Auto Diff Today Z00.00 - Encounter for general adult medical examination without abnormal findings Comprehensive [place]. Panel Fast Today Z00.00 - Encounter for general adult medical examination without abnormal findings TSH reflex Free T4 Today Z00.00 - Encounter for general adult medical examination without abnormal findings UA CC w/rflx Micro + Cult Today Z00.00 - Encounter for general adult medical examination without abnormal findings Lipid Panel Today Z00.00 - Encounter for general adult medical examination without abnormal findings Medications: New buspirone 5 mg PO BID 30 days 60 tabs 3RF Refilled ibuprofen 800 mg PO TID PRN 90 tabs 0RF for pain trazodone 50 mg PO BEDTIME PRN 90 tabs 0RF insomnia
== END 2025-01-28 13:53 | disposition home or self-care (01) ==
LOC: HO.HMCC 12:49
PROVIDERS: PCP Nurse Practitioner Family; Visit Provider Nurse Practitioner Family
DX: Z00.00 Encounter for general adult medical examination without abnormal findings (principal); Z12.5 Encounter for screening for malignant neoplasm of prostate

== ENCOUNTER 2025-01-28 12:48 | Outpatient (REF) | payer OTHER, SELFPAY ==
[2025-01-28 16:07] LABS: MANUAL DIFF FLAG NO
[2025-01-28 16:14] LABS: Basophils Percent Auto 0.6 % (0-2); Eosinophils Absolute Auto 0.1 X10*3/uL (0.0-0.4); Hematocrit 42.7 % (42.0-52.0); Hemoglobin 14.7 g/dl (14.0-18.0); Imm Gran Abs Auto 0.01 X10*3/uL (0.00-0.03); Imm Gran Pct Auto 0.2 % (0.0-0.4); Lymphocytes Absolute Auto 1.3 X10*3/uL (1.2-4.9); Lymphocytes Percent Auto 26.9 % (20-40); Mean Corpuscular HGB Conc 34.4 g/dl (31.0-36.0); Mean Platelet Volume 11.6 fL (9.4-12.4); Monocytes Absolute Auto 0.5 X10*3/uL (0.1-1.2); Monocytes Percent Auto 9.4 % (2-11); Neutrophils Percent Auto 61.9 % (45-73); Platelet Count 212 X10*3/uL (160-400); Red Blood Count 4.59 X10*6/uL (4.60-5.80); Red Cell Distribution Width 12.5 % (11.0-16.0); White Blood Count 4.9 X10*3/uL (4.8-10.8)
[2025-01-28 16:37] LABS: Appearance Urine Clear; Color Urine Yellow; Glucose Urine UA Negative (Negative); Leukocyte Esterase Urine Negative (Negative); Nitrite Urine Negative (Negative); Specific Gravity - Urine 1.015 (1.005-1.025); Urine Blood Negative (Negative); Urine Ketones Negative (Negative); Urine Protein Negative (Neg-Trace)
[2025-01-28 16:39] LABS: Alanine Aminotransferase 20 U/L (0-40); Albumin Level 4.3 g/dL (3.5-5.0); Anion Gap 12 (12-20); Aspartate Amino Transferase 28 U/L (5-37); Bilirubin Total 0.9 mg/dL (0.0-1.0); Blood Urea Nitrogen 25 mg/dL (9-16); Calcium 9.3 mg/dL (8.4-10.2); Carbon Dioxide 22 mmol/L (22-29); Chloride 108 mmol/L (96-108); Cholesterol 174 mg/dL (<200); Estimated Glomerular Filt Rate > 60; Glucose Fasting 95 mg/dL (60-99); HDL Cholesterol 47 mg/dL (>40); LDL Cholesterol Calculated 107 mg/dL (<100); Potassium 4.4 mmol/L (3.3-5.1); Sodium 138 mmol/L (135-145); Triglycerides 100 mg/dL (<150)
[2025-01-28 17:05] LABS: Prostate Specific Antigen Scr 2.74 ng/mL (<0.05-4.0)
[2025-01-28 17:10] LABS: Alkaline Phosphatase 82 U/L (39-117); TSH reflex Free T4 1.16 uIU/mL (0.32-4.0)
== END 2025-01-28 12:49 | disposition home or self-care (01) ==
LOC: HO.HMGCLDS 12:48
PROVIDERS: PCP Nurse Practitioner Family; Visit Provider Nurse Practitioner Family
DX: Z00.00 Encounter for general adult medical examination without abnormal findings (principal); Z12.5 Encounter for screening for malignant neoplasm of prostate
CPT/HCPCS: 36415; 80053; 80061; 81003; 84153; 84443; 85025; 96127

== ENCOUNTER 2025-05-16 15:23 | Outpatient (AMB) | payer OTHER, SELFPAY ==
[2025-05-16 15:29] VITALS: BP 110/62; PULSE 74; RESP 16; O2SAT 96; BMI 29.4
--- NOTE | 2025-05-16 15:29 | A.OFFPC_ITS ---
Vital Signs 05/16/25 15:29 Height 5 ft 10 in Weight 205 lb BMI 29.4 BP 110/62 Blood Pressure Location Rt brachial Position Sitting Respiration 16 Pulse 74 Pulse Source Pulse Oximeter Pulse Oximetry (%) 96 Oxygen Delivery Method Room Air Intake Visit Reasons: 4 m follow up Allergies lisinopril Allergy (Unknown, Verified 05/16/25 15:32) cough oxycodone Allergy (Unknown, Verified 05/16/25 15:32) severe nausea and vomiting, vomiting hydromorphone (From Dilaudid) Adverse Reaction (Verified 05/16/25 15:32) Nausea Tobacco use date assessed: 05/16/25 Fall risk assessment: No Falls in past year Last assessed Fall Risk: 05/16/25 Dental Screening Dental Screen Date: 05/16/25 Did you have a dental visit in the last 12 months?: Yes Did you have a dental problem in the last 6 months where you did not have access to dental care?: No Was dental information given to patient?: Patient has dentist HPI 4 m follow up HPI Details Chief Complaint The patient presents for a follow-up regarding his treatment for cutaneous melanoma and anxiety management. 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 The melanoma was excised prior to the initiation of immunotherapy, and he is currently senior living through his treatment regimen. He reports experiencing slight fatigue but otherwise feels well. The patient is also being treated for anxiety, which is managed with buspirone 5 mg twice daily. He reports that his anxiety is well-controlled with this regimen. The patient engages in regular exercise, including stretching and low weights with higher repetitions, contributing positively to his overall well-being. Social History - Exercise: Engages in regular stretchin g and low weights with higher repetitions Health Maintenance - Regular follow-up with oncology for im munotherapy Review of Systems - General: Reports slight fatigue - Psychiatric: Reports anxiety well-cont rolled with medication denies any fevers, chills, N/V, cp, sob, wade, blurred vision Physical Exam General: Cooperative, healthy appearing, comfortable, no acute distress and well developed Orientation: Patient oriented x3 Limitations: No limitations Head: Normal to inspection Ears: Hearing grossly normal bilaterally Nose: Normal external nose present Face and sinus: Normal facial exam Eyes: Appearance normal, both eyes and all related structures Neck: Normal visual inspection and Yes full ROM Respiratory: Normal respiratory effort and able to speak in complete sentences. Clear to auscultation bilaterally Cardiovascular: Regular rate and rhythm. Normal S1 and S2 GI: Normal to inspection. Soft to palpation and nontender Skin: no rashes or lesions Neuro: Patient oriented x3 Extremities: Normal to inspection Plan 1. Cutaneous Melanoma Of The Right Lower Abdomen With Ulceration The patient is undergoing immunotherapy and is senior living through the treatment course. The lesion was excised prior to starting infusions, and he is monitored regularly by the oncology team. 2. Anxiety The patient's anxiety is managed with buspirone 5 mg twice daily, which he reports is effective. Continuation of the current regimen is planned. Discussion Notes The patient was informed about the continuation of his current treatment regimen for anxiety with buspirone, as it is effective in managing his symptoms. He will continue to follow up with the oncology team for his immunotherapy treatment, labs. Patient Instructions - Continue taking buspirone 5 mg twice d aily for anxiety management. - Follow up with the oncology team as sc heduled for immunotherapy. - Maintain regular exercise routine incl uding stretching and low weights with higher repetitions. [facility] Medical History (Updated 05/16/25 @ 16:23 by LATONYA Jensen) Malignant melanoma BPH (benign prostatic hyperplasia) Elevated PSA HTN (hypertension) Surgical History (Updated 05/16/25 @ 16:23 by LATONYA Jensen) Hx of melanoma excision S/P TURP History of prostate biopsy History of inguinal hernia History of hemorrhoidectomy History of tonsillectomy Family History Father HTN (hypertension) Stroke Mother COPD (chronic obstructive pulmonary disease) Stroke Brother No problems noted. Brother No problems noted. Brother No problems noted. Social History Housing: House Alcohol intake: former Year quit: 1984 Patient Tobacco Use Status: Never used Tobacco e-Cigarette/Vaping Use: Never Used Second Hand Smoke Exposure: No service: No Current occupational status: retired Cognitive needs: No Hearing needs: No Vision needs: Yes Questionnaire PHQ-9 Over the last 2 weeks, how often have you been bothered by any of the following problems? 1. Little interest or pleasure in doing things: not at all 2. Feeling down, depressed, or hopeless: not at all 3. Trouble falling or staying asleep, or sleeping too much: not at all 4. Feeling tired or having little energy: not at all 5. Poor appetite or overeating: not at all 6. Feeling bad about yourself - or that you are a failure or have let yourself or your family down: not at all 7. Trouble concentrating on things, such as reading the newspaper or watching television: not at all 8. Moving or speaking so slowly that other people could have noticed. Or the opposite - being so fidgety or restless that you have been moving around a lot more than usual: not at all 9. Thoughts that you would be better off or of hurting yourself in some way: not at all Total score: 0 Depression Screening Interpretation: Negative Depression Screening Done: Yes 99751 - PHQ-9 Billing: Yes Source: Developed by Drs. Reg Fulton, Jackie Villanueva, Arsalan Campbell and colleagues, with an educational argenis from [employer]. Thrive Questionnaire Date Thrive assessed: 01/28/25 I am a: Patient What is your living situation today?: I have a steady place to live Within the past 12 months, did the food you bought not last and you didn't have the money to get more?: Never true Within the past 12 months, did you worry whether your food would run out before you got money to buy more?: Never true Do you have trouble paying for medicines?: No Do you have trouble getting transportation to medical appointments?: No Do you have trouble paying your heating and electricity bill?: No Do you have trouble taking care of your child, family member or friend?: No Do you have trouble with day-to-day activities such as bathing, preparing meals, shopping, managing finances, etc.?: No Are you currently unemployed and looking for a job?: No Are you interested in more education?: No Please select the resources that you would like help with: None Currently or been in a relationship where the following occur: No concerns reported THRIVE Score: 0 AUDIT C Alcohol Use Questionnaire (AUDIT-C) 3. How often do you have six or more drinks on one occasion?: Daily or almost daily Total Score: 4 Score Reviewed/Action Taken: Yes DELFIN-7 AMB Questionnaire DELFIN-7 Date DELFIN - 7 assessed: 05/16/25 Feeling nervous, anxious, or on edge: 1 = Several days Not being able to stop or control worryin = Several days Worrying too much about different things: 2 = More than half the days Trouble relaxin = Not at all Being so restless that it is hard to sit still: 0 = Not at all Becoming easily annoyed or irritable: 0 = Not at all Feeling afraid as if something awful might happen: 0 = Not at all Total DELFIN-7 score (0-4 normal; 5-9 mild; 10-14 moderate; 15-21 severe): 4 Source: Developed by Drs. Reg Fulton, Jackie Villanueva, Arsalan Campbell and colleagues, with an educational argenis from [employer]. DELFIN-7 Assessment Billing DELFIN-7 Assessment Tool: DELFIN-7 Assessment 72865 Physical exam (Primary Care) Vital Signs: Last Vital Signs Pulse 74 05/16/25 15:29 Resp 16 05/16/25 15:29 BP 110/62 05/16/25 15:29 Pulse Ox 96 05/16/25 15:29 Oxygen Delivery Method Room Air 05/16/25 15:29 BMI result Body Mass Index 29.4 Tobacco/Smoking Status: Tobacco use Status Tobacco use date assessed 05/16/25 05/16/25 15:35 Patient Tobacco Use Status Never used Tobacco 05/16/25 15:30 e-Cigarette/Vaping Use Never Used 05/16/25 15:30 PHQ-9: PHQ-9 Score PHQ-9: Total score 0 05/16/25 15:35 Depression Screening Interpretation: Negative Thrive Assessment: Date of Thrive Assessment Date Thrive assessed 01/28/25 05/16/25 15:30 Currently or been in a relationship where the following occur: No concerns reported Coding Level of Care Code Est Pt Level 3 (21108) Diagnoses Hx of melanoma excision Z98.890; Z85.820 Anxiety F41.9 Additional Codes DELFIN-7 Assessment Billing - DELFIN-7 Assessment Tool: DELFIN-7 Assessment 47415 ([id number]) PHQ-9 - 85233 - PHQ-9 Billing: Yes ([id number]) Assessment & Plan Assessment & Plan (1) Hx of melanoma excision: Code(s): Z98.890 - Other specified postprocedural states; Z85.820 - Personal history of malignant melanoma of skin Category: Surgical (2) Anxiety: Code(s): F41.9 - Anxiety disorder, unspecified Category: Medical Plan . Medications: Refilled buspirone 5 mg PO BID 60 tabs 3RF 30 days
--- OUTSIDE RECORDS SUMMARY | 2025-05-16 16:21 | XMS_ITS | Patient Health Record ---
Author Organization [facility] Address [address] [place] [address] Care Team Providers Care Banquet Cook Name Role Phone RAEGAN XAVIER Primary Care Provider Reg Casarez Unavailable [phone] Allergies Allergen (clinical drug ingredient) Drug/Non Drug [...] Problem Status W/U Status Risk Notes Problem [id number] Encounter for screening for malignant neoplasm of colon (Z12.11) Active confirmed Problem Screening for malignant neoplasm of rectum (339033599) Encounter for screening for malignant neoplasm of rectum (Z12.12) Active confirmed Problem 97733396 Preprocedural examination (Z01.818) Active confirmed Problem 95907367 Hemorrhoids, unspecified hemorrhoid type (K64.9) Active confirmed Problem [id number] Family history o f colorectal cancer (Z80.0) Active confirmed Problem Diverticulosis of colon (075856506) Diverticulosis of colon (K57.30) Active confirmed Plan Of Treatment Pending Test Test Name Order Date Pathology 10/14/2021 Future Test Test Name Order Date COLONOSCOPY 11/27/2015 COLONOSCOPY 09/03/2021 Insurance Providers Payer Name Payer Address Payer Phone Subscriber Number Group Number Insured Name Patient Relationship to Insured Coverage Start Date Coverage End Date [facility] [address] [place] [phone] [id number] MATHIEU VISHAL Self - patient is the insured MEDICARE OF [place] [address] [facility] [place] [address] [id number] RACHEL MURDOCKHEN Self - patient is the insured Medical (General) History Medical History History ICD Code Hypertension Denies [place],DM,CVA,Lung disease,renal dise ase 3 previous colonoscopies manav t have been negative for polyps, with the most recent one in April [address] Montiel showing only internal hemorrhoids--he had [address] Guillermo Negative colonoscopy with nh in 05/2016 Surgical History Surgery Date(Month/Year) Left broken leg [address] Montiel, Dr Christie Guillerom, Dr. Sanchez Shoulder surgery bilateral Left inguinal hernia
== END 2025-05-16 16:19 | disposition home or self-care (01) ==
LOC: HO.HMCC 15:23
PROVIDERS: PCP Nurse Practitioner Family; Visit Provider Nurse Practitioner Family
DX: Z98.890 Other specified postprocedural states (principal); Z85.820 Personal history of malignant melanoma of skin; F41.9 Anxiety disorder, unspecified

== ENCOUNTER → 2025-05-16 15:23 | Outpatient (BNVA) | payer OTHER, SELFPAY | PROVIDERS: PCP Nurse Practitioner Family; Visit Provider Nurse Practitioner Family | DX: F41.9 Anxiety disorder, unspecified (principal); Z85.820 Personal history of malignant melanoma of skin; Z98.890 Other specified postprocedural states; Z79.899 Other long term (current) drug therapy | CPT/HCPCS: 96127 ==